=== PATIENT | female | born 1995 | race Caucasian/White ===

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

== ENCOUNTER → 2017-05-18 | Outpatient (REF) | LOC: WSOH 13:42 → WSPT 14:45 | DX: Z02.89 Encounter for other administrative examinations (principal) ==

== ENCOUNTER → 2017-05-21 | Outpatient (REF) | LOC: WSOH 08:44 | DX: Z02.89 Encounter for other administrative examinations (principal) ==

== ENCOUNTER → 2017-05-21 | Outpatient (REF) | LOC: WSOH 08:44 | DX: Z02.89 Encounter for other administrative examinations (principal) ==

== ENCOUNTER → 2017-05-21 | Outpatient (REF) | LOC: WSOH 15:30 | DX: Z02.89 Encounter for other administrative examinations (principal) ==

== ENCOUNTER → 2017-05-25 | Outpatient (REF) | LOC: WSOH 11:05 | DX: Z11.1 Encounter for screening for respiratory tuberculosis (principal) ==

== ENCOUNTER → 2017-07-05 | Outpatient (REF) | LOC: WSOH 08:39 | DX: Z01.84 Encounter for antibody response examination (principal) ==